=== PATIENT | male | born 1945 | race Caucasian/White ===

== ENCOUNTER 2016-05-04 11:56 | Inpatient (IN) | payer OTHER ==
[2016-05-04] MEDS ORDERED: NITROGLYCERIN 0.4 MG TAB.SUBL SL PRN ×2 (12:24→14:08)
[2016-05-04] MEDS ORDERED: ENOXAPARIN SODIUM 30 MG/0.3 ML DISP.SYRIN SQ SCH (13:00)
[2016-05-04] MEDS ORDERED: HYDROcodone /APAP 5/325 1 EACH TABLET PO PRN (14:08)
--- NOTE | 2016-05-04 14:20 | History and Physical Report ---
History of Present Illnes - History of Present Illness Reason for Visit: rehab post knee surgery History of Present Illness: 70yo white male who underwent a total right knee replacement 3 days ago and was transferred to this institution for further rehab services. He has been walking some. Pain seems to be manageable at this time. No intreroperative or post operative complications. Patient has had some problems with osteoarthritis for some time. Has been having more difficulties with pain and elected to have a total knee replacement. - Past Medical History Cardiac: CAD, HTN, Hyperlipidemia Musculoskeletal: Osteoarthritis Renal/: Benign prostatic enlarg. - Past Surgical History Past Surgical History: Other (back surgery times 4, Cardiac cath with stinting of one vessel) - Past Social History Smoke: No Occupation: [employer] Alcohol: None Drugs: None Lives: Alone Domestic Violence: Negative - Health Maintenance Health Maintenance: Cholesterol Pneumonia Vaccine: Yes Resuscitation Status: Resusciation Status Resuscitation Status Full Code - Unable to Obtain History Unable to Obtain: Yes Review of Systems - Review of Systems Constitutional: negative: Fever, Chills, Weakness Eyes: negative: pain, vision change ENT: negative: Ear Pain, Ear Discharge, Nose Pain, Nose Discharge, Nose Congestion, Mouth Pain, Mouth Swelling, Throat Pain, Throat Swelling Respiratory: negative: Cough, Dry, Shortness of Breath, Hemoptysis, SOB with Excertion, Pleuritic Pain, Sputum, Wheezing Cardiovascular: negative: Chest Pain, Palpitations, Orthopnea, Paroxysmal Noc. Dyspnea, Edema Gastrointestinal: negative: Nausea, Vomiting, Abdominal Pain, Diarrhea, Constipation, Melena, Hematochezia Genitourinary: negative: Dysuria, Frequency, Incontinence, Hematuria Musculoskeletal: Back Pain, Leg Pain (right knee) Skin: negative: Rash, Lesions Neurological: Other (mental challenged). negative: Weakness, Numbness, Incoordination, Change in Speech - Medications/Allergies Allergies/Adverse Reactions: Allergies Allergy/AdvReac Type Severity Reaction Status Date / Time morphine Allergy Verified 05/04/16 12:42 Home Medications: Home Medications Aspirin [Katarina] 325 mg PO BID 05/04/16 Atorvastatin Calcium 40 mg PO HS 05/04/16 Calcium Carbonate [Calcium] 600 mg PO D 05/04/16 Famotidine [Pepcid] 20 mg PO 717 05/04/16 Finasteride [Proscar] 5 mg PO DAILY 05/04/16 Hydrochlorothiazide [Hydrodiuril] 12.5 mg PO D 05/04/16 Hydrocodone/Acetaminophen [Hydrocodon-Acetaminophen 5-325] 1 each PO Q4 PRN Metoprolol Succinate [Toprol XL] 50 mg PO DAILY 05/04/16 Multivits-Min/Iron/FA/Lutein [Centrum Silver Women Tablet] 1 each PO D 05/04/16 Nitroglycerin [Nitroquick] 0.4 mg SL Q5M PRN 05/04/16 [place]-3S/Dha/Epa/Fish Oil [Fish Oil 1,200 mg Softgel] 1 each PO D 05/04/16 Oxybutynin Chloride [Ditropan Xl] 10 mg PO D 05/04/16 Sennosides/Docusate Sodium [Senna Plus Tablet] 1 each PO DAILY 05/04/16 Tamsulosin HCl [Flomax] 0.4 mg PO [id number] 05/04/16 Tramadol HCl [Ultram] 50 mg PO Q6 PRN 05/04/16 Zinc Plus (Vitamin C-Vitamin [id number]) 1 tab PO D 05/04/16 amLODIPine BESYLATE [Norvasc] 5 mg PO 0900 05/04/16 Current Inpatient Medications: Current Inpatient Medications Amlodipine Besylate (Norvasc) 5 mg PO DAILY [facility] Aspirin (Aspirin) 325 mg PO BID [facility] Atorvastatin Calcium (Lipitor) 40 mg PO HS [facility] Calcium/Vitamin D (Caltrate With Vit D-3) 1 each PO D [facility] Enoxaparin Sodium (Lovenox) 30 mg SQ QD [facility] Stop: 05/17/16 13:01 Famotidine (Pepcid) 20 mg PO 717 [facility] Finasteride (Proscar) 5 mg PO DAILY [facility] Hydrochlorothiazide (Hydrodiuril) 12.5 mg PO DAILY [facility] Metoprolol Succinate (Toprol Xl) 50 mg PO DAILY [facility] Nitroglycerin (Nitroquick) 0.4 mg SL Q5M PRN PRN Reason: Chest Pain Oxybutynin Chloride (Ditropan) 5 mg PO BID [facility] Senna/Docusate Sodium (Senna Plus Tablet) 1 each PO DAILY [facility] Tamsulosin HCl (Flomax) 0.4 mg PO [id number] [facility] Exam - Exam General: Alert, Oriented to Person, Oriented to Place, Oriented to Time, Cooperative, No acute distress HEENT: Atraumatic, PERRLA, EOMI, Mouth Mucous membr. moist/[place], Nose Mucous membr. moist/[place] Neck: Normal Range of Motion Lungs: Clear to auscultation, Normal air movement, Speaks full Sentences. No: Wheezes, Rales, Rhonchi, Stridor Cardiovascular: Regular rate, Normal S1, Normal S2, No murmurs. No: Gallops Abdomen: Normal bowel sounds, Soft, No tenderness, No hepatospenomegaly, No masses, Other (obese). No: Distended Integumentary: Normal, [place], Warm, Dry Extremities: No clubbing, No cyanosis, No edema, Normal pulses, No tenderness/ swelling, Other (dry dressing over the right knee, swelling to the right knee joint area) Neurological: Normal gait, Normal speech, Strength Equal Bilat, Normal tone, Sensation intact, Cranial nerves 3-12 NL, Reflexes 2+ Psych/Mental Status: Mental status NL, Mood NL, Appropriate Affect. No: Intact Judgment Assessment/Plan - Assessment/Plan (1) Gait disturbance Status: Acute (2) Essential hypertension Status: Acute (3) Hyperlipemia Status: Chronic (4) BPH (benign prostatic hyperplasia) Status: Chronic (5) History of hyperglycemia Status: Chronic VTE Assessment - RISK FACTOR SCORE VTE RISK FACTOR SCORES: AGE OVER 60 YEARS, LEG SWELLING, ULCERS, VARICOSE VEINS , ELECTIVE KNEE OR HIP ARTHROPLASTY - RISK VTE HIGH RISK: SCORE OF 3-4 (RISK PROXIMAL DVT 4-8%) PROPHYLAXIS NEEDED
[2016-05-04] MEDS ORDERED: ENOXAPARIN SODIUM 30 MG/0.3 ML DISP.SYRIN SQ ONE (14:43)
[2016-05-04] MEDS ORDERED: HYDROcodone /APAP 5/325 1 EACH TABLET ONE (14:44)
[2016-05-04] MEDS: HYDROcodone /APAP 5/325 1 EACH TABLET PO SCH ×2 (16:51→21:24)
[2016-05-04] MEDS: FAMOTIDINE 20 MG TABLET PO SCH (16:51)
[2016-05-04 17:33] VITALS: BMI 36.6
[2016-05-04] MEDS: traMADol HCL 50 MG TABLET PO PRN (19:42)
[2016-05-04] MEDS ORDERED: FINASTERIDE 5 MG TABLET PO SCH (21:00)
[2016-05-04] MEDS: OXYBUTYNIN CHLORIDE 5 MG TABLET PO SCH (21:24)
[2016-05-04] MEDS: ASPIRIN 325 MG TABLET PO SCH (21:24)
[2016-05-04] MEDS: ATORVASTATIN CALCIUM 80 MG TABLET PO SCH (21:26)
[2016-05-05] MEDS: HYDROcodone /APAP 5/325 1 EACH TABLET PO SCH ×6 (00:55→21:55)
[2016-05-05] MEDS: FAMOTIDINE 20 MG TABLET PO SCH ×2 (06:24→17:00)
[2016-05-05] MEDS: SENNOSIDES/DOCUSATE SODIUM 1 EACH TABLET PO SCH (08:29)
[2016-05-05] MEDS: HYDROCHLOROTHIAZIDE 25 MG TABLET PO SCH (08:29)
[2016-05-05] MEDS: ASPIRIN 325 MG TABLET PO SCH ×2 (08:29→21:55)
[2016-05-05] MEDS: FINASTERIDE 5 MG TABLET PO SCH (08:29)
[2016-05-05] MEDS: CALCIUM CARB 600MG/VIT D-3 400 1 EACH TABLET PO SCH (08:29)
[2016-05-05] MEDS: OXYBUTYNIN CHLORIDE 5 MG TABLET PO SCH ×2 (08:29→21:55)
[2016-05-05] MEDS: METOPROLOL SUCCINATE 50 MG TAB.ER.24H PO SCH (08:29)
[2016-05-05] MEDS: amLODIPine BESYLATE 5 MG TABLET PO SCH (08:32)
[2016-05-05] MEDS ORDERED: METOPROLOL SUCCINATE 50 MG TAB.ER.24H PO SCH (09:00)
[2016-05-05] MEDS ORDERED: HYDROCHLOROTHIAZIDE 12.5 MG PO SCH (09:00)
[2016-05-05] MEDS: ATORVASTATIN CALCIUM 80 MG TABLET PO SCH (21:55)
[2016-05-06] MEDS: HYDROcodone /APAP 5/325 1 EACH TABLET PO SCH ×6 (01:02→21:19)
[2016-05-06] MEDS ORDERED: ASPIRIN 81 MG CHEW TAB ONE (04:39)
[2016-05-06] MEDS: FAMOTIDINE 20 MG TABLET PO SCH ×2 (06:21→16:45)
[2016-05-06 07:28] LABS: BASOPHILS % 0.4 (0.0-1.5); EOSINOPHILS % 1.7 % (0.0-6.8); LYMPHOCYTES # 5.9 # k/uL (0.6-4.0); MEAN CORPUSCULAR HEMOGLOBIN 28.7 pg (28.0-34.0); MONOCYTES # 0.6 # k/uL (0.0-0.9); MONOCYTES % 4.9 % (0.0-11.0); NEUTROPHILS # 5.1 # k/uL (1.4-7.7)
[2016-05-06 07:39] LABS: eGFR (African) > 60; eGFR (Non-African) > 60
[2016-05-06] MEDS: CALCIUM CARB 600MG/VIT D-3 400 1 EACH TABLET PO SCH (08:51)
[2016-05-06] MEDS: FINASTERIDE 5 MG TABLET PO SCH (08:51)
[2016-05-06] MEDS: OXYBUTYNIN CHLORIDE 5 MG TABLET PO SCH ×2 (08:51→21:18)
[2016-05-06] MEDS: SENNOSIDES/DOCUSATE SODIUM 1 EACH TABLET PO SCH (08:51)
[2016-05-06] MEDS: HYDROCHLOROTHIAZIDE 25 MG TABLET PO SCH (08:52)
[2016-05-06] MEDS: METOPROLOL SUCCINATE 50 MG TAB.ER.24H PO SCH (08:52)
[2016-05-06] MEDS: TAMSULOSIN HCL 0.4 MG CAP.ER.24H PO SCH ×2 (08:53→18:40)
[2016-05-06] MEDS: amLODIPine BESYLATE 5 MG TABLET PO SCH (09:06)
[2016-05-06] MEDS: ASPIRIN 325 MG TABLET PO SCH ×2 (09:06→21:18)
[2016-05-06] MEDS: traMADol HCL 50 MG TABLET PO PRN ×2 (14:34→22:47)
[2016-05-06] MEDS: ATORVASTATIN CALCIUM 80 MG TABLET PO SCH (21:18)
[2016-05-07] MEDS: HYDROcodone /APAP 5/325 1 EACH TABLET PO SCH ×2 (01:20→06:37)
[2016-05-07] MEDS: FAMOTIDINE 20 MG TABLET PO SCH ×2 (06:37→17:02)
[2016-05-07] MEDS: HYDROcodone /APAP 5/325 1 EACH TABLET PEG SCH ×4 (06:38→23:04)
[2016-05-07] MEDS: OXYBUTYNIN CHLORIDE 5 MG TABLET PO SCH ×2 (10:28→20:41)
[2016-05-07] MEDS: ASPIRIN 325 MG TABLET PO SCH ×2 (10:28→20:41)
[2016-05-07] MEDS: CALCIUM CARB 600MG/VIT D-3 400 1 EACH TABLET PO SCH (10:28)
[2016-05-07] MEDS: HYDROCHLOROTHIAZIDE 25 MG TABLET PO SCH (10:28)
[2016-05-07] MEDS: SENNOSIDES/DOCUSATE SODIUM 1 EACH TABLET PO SCH (10:29)
[2016-05-07] MEDS: FINASTERIDE 5 MG TABLET PO SCH (10:29)
[2016-05-07] MEDS: amLODIPine BESYLATE 5 MG TABLET PO SCH (10:29)
[2016-05-07] MEDS: METOPROLOL SUCCINATE 50 MG TAB.ER.24H PO SCH (10:30)
[2016-05-07] MEDS: TAMSULOSIN HCL 0.4 MG CAP.ER.24H PO SCH (17:02)
[2016-05-07] MEDS: ATORVASTATIN CALCIUM 80 MG TABLET PO SCH (20:41)
[2016-05-07] MEDS: traMADol HCL 50 MG TABLET PO PRN (20:41)
[2016-05-08] MEDS: traMADol HCL 50 MG TABLET PO PRN ×2 (01:09→21:30)
[2016-05-08] MEDS: FAMOTIDINE 20 MG TABLET PO SCH ×2 (05:58→17:50)
[2016-05-08] MEDS: HYDROcodone /APAP 5/325 1 EACH TABLET PEG SCH ×3 (05:58→17:50)
[2016-05-08] MEDS: HYDROCHLOROTHIAZIDE 25 MG TABLET PO SCH (09:06)
[2016-05-08] MEDS: CALCIUM CARB 600MG/VIT D-3 400 1 EACH TABLET PO SCH (09:06)
[2016-05-08] MEDS: ASPIRIN 325 MG TABLET PO SCH ×2 (09:06→21:30)
[2016-05-08] MEDS: OXYBUTYNIN CHLORIDE 5 MG TABLET PO SCH ×2 (09:06→21:30)
[2016-05-08] MEDS: amLODIPine BESYLATE 5 MG TABLET PO SCH (09:07)
[2016-05-08] MEDS: SENNOSIDES/DOCUSATE SODIUM 1 EACH TABLET PO SCH (09:08)
[2016-05-08] MEDS: FINASTERIDE 5 MG TABLET PO SCH (09:08)
[2016-05-08] MEDS: METOPROLOL SUCCINATE 50 MG TAB.ER.24H PO SCH (09:08)
[2016-05-08] MEDS: TAMSULOSIN HCL 0.4 MG CAP.ER.24H PO SCH (17:50)
[2016-05-08] MEDS: ATORVASTATIN CALCIUM 80 MG TABLET PO SCH (21:30)
[2016-05-09] MEDS: HYDROcodone /APAP 5/325 1 EACH TABLET PEG SCH ×4 (00:01→18:24)
[2016-05-09] MEDS: FAMOTIDINE 20 MG TABLET PO SCH ×2 (05:26→18:25)
[2016-05-09] MEDS: amLODIPine BESYLATE 5 MG TABLET PO SCH (10:11)
[2016-05-09] MEDS: ASPIRIN 325 MG TABLET PO SCH ×2 (10:12→21:08)
[2016-05-09] MEDS: CALCIUM CARB 600MG/VIT D-3 400 1 EACH TABLET PO SCH (10:13)
[2016-05-09] MEDS: METOPROLOL SUCCINATE 50 MG TAB.ER.24H PO SCH (10:14)
[2016-05-09] MEDS: FINASTERIDE 5 MG TABLET PO SCH (10:14)
[2016-05-09] MEDS: SENNOSIDES/DOCUSATE SODIUM 1 EACH TABLET PO SCH (10:14)
[2016-05-09] MEDS: HYDROCHLOROTHIAZIDE 25 MG TABLET PO SCH (10:15)
[2016-05-09] MEDS: OXYBUTYNIN CHLORIDE 5 MG TABLET PO SCH ×2 (10:15→21:10)
[2016-05-09] MEDS: TAMSULOSIN HCL 0.4 MG CAP.ER.24H PO SCH (18:24)
[2016-05-09] MEDS: ATORVASTATIN CALCIUM 80 MG TABLET PO SCH (21:08)
[2016-05-10] MEDS: HYDROcodone /APAP 5/325 1 EACH TABLET PEG SCH ×4 (00:18→18:07)
[2016-05-10] MEDS: traMADol HCL 50 MG TABLET PO PRN ×2 (04:36→14:35)
[2016-05-10] MEDS: FAMOTIDINE 20 MG TABLET PO SCH ×2 (06:23→18:08)
[2016-05-10] MEDS: OXYBUTYNIN CHLORIDE 5 MG TABLET PO SCH ×2 (08:34→21:08)
[2016-05-10] MEDS: CALCIUM CARB 600MG/VIT D-3 400 1 EACH TABLET PO SCH (08:35)
[2016-05-10] MEDS: amLODIPine BESYLATE 5 MG TABLET PO SCH (08:35)
[2016-05-10] MEDS: HYDROCHLOROTHIAZIDE 25 MG TABLET PO SCH (08:35)
[2016-05-10] MEDS: METOPROLOL SUCCINATE 50 MG TAB.ER.24H PO SCH (08:35)
[2016-05-10] MEDS: ASPIRIN 325 MG TABLET PO SCH ×2 (08:35→21:08)
[2016-05-10] MEDS: SENNOSIDES/DOCUSATE SODIUM 1 EACH TABLET PO SCH (08:35)
[2016-05-10] MEDS: FINASTERIDE 5 MG TABLET PO SCH (08:35)
[2016-05-10] MEDS: TAMSULOSIN HCL 0.4 MG CAP.ER.24H PO SCH (18:08)
[2016-05-10] MEDS: ATORVASTATIN CALCIUM 80 MG TABLET PO SCH (21:09)
[2016-05-10] MEDS: HYDROcodone /APAP 5/325 1 EACH TABLET PO SCH ×2 (23:47→23:49)
[2016-05-11] MEDS: HYDROcodone /APAP 5/325 1 EACH TABLET PO SCH ×3 (05:24→18:00)
[2016-05-11] MEDS: FAMOTIDINE 20 MG TABLET PO SCH ×2 (05:25→18:00)
[2016-05-11] MEDS: CALCIUM CARB 600MG/VIT D-3 400 1 EACH TABLET PO SCH (09:14)
[2016-05-11] MEDS: OXYBUTYNIN CHLORIDE 5 MG TABLET PO SCH ×2 (09:14→22:08)
[2016-05-11] MEDS: ASPIRIN 325 MG TABLET PO SCH ×2 (09:14→22:04)
[2016-05-11] MEDS: SENNOSIDES/DOCUSATE SODIUM 1 EACH TABLET PO SCH (09:15)
[2016-05-11] MEDS: HYDROCHLOROTHIAZIDE 25 MG TABLET PO SCH (09:15)
[2016-05-11] MEDS: FINASTERIDE 5 MG TABLET PO SCH (09:15)
[2016-05-11] MEDS: amLODIPine BESYLATE 5 MG TABLET PO SCH (09:15)
[2016-05-11] MEDS: METOPROLOL SUCCINATE 50 MG TAB.ER.24H PO SCH (09:16)
[2016-05-11] MEDS: traMADol HCL 50 MG TABLET PO PRN (09:50)
[2016-05-11] MEDS: TAMSULOSIN HCL 0.4 MG CAP.ER.24H PO SCH (18:02)
[2016-05-11] MEDS: ATORVASTATIN CALCIUM 80 MG TABLET PO SCH (22:08)
[2016-05-12] MEDS: HYDROcodone /APAP 5/325 1 EACH TABLET PO SCH ×4 (00:04→17:32)
[2016-05-12] MEDS: FAMOTIDINE 20 MG TABLET PO SCH ×2 (05:46→17:31)
[2016-05-12] MEDS: OXYBUTYNIN CHLORIDE 5 MG TABLET PO SCH ×2 (09:41→21:31)
[2016-05-12] MEDS: CALCIUM CARB 600MG/VIT D-3 400 1 EACH TABLET PO SCH (09:41)
[2016-05-12] MEDS: ASPIRIN 325 MG TABLET PO SCH ×2 (09:41→21:30)
[2016-05-12] MEDS: HYDROCHLOROTHIAZIDE 25 MG TABLET PO SCH (09:42)
[2016-05-12] MEDS: METOPROLOL SUCCINATE 50 MG TAB.ER.24H PO SCH (09:43)
[2016-05-12] MEDS: SENNOSIDES/DOCUSATE SODIUM 1 EACH TABLET PO SCH (09:43)
[2016-05-12] MEDS: FINASTERIDE 5 MG TABLET PO SCH (09:43)
[2016-05-12] MEDS: amLODIPine BESYLATE 5 MG TABLET PO SCH (09:51)
[2016-05-12] MEDS: TAMSULOSIN HCL 0.4 MG CAP.ER.24H PO SCH (17:31)
[2016-05-12] MEDS: traMADol HCL 50 MG TABLET PO PRN (18:41)
[2016-05-12] MEDS: ATORVASTATIN CALCIUM 80 MG TABLET PO SCH (21:31)
[2016-05-13] MEDS: HYDROcodone /APAP 5/325 1 EACH TABLET PO SCH ×6 (05:52→23:50)
[2016-05-13] MEDS: FAMOTIDINE 20 MG TABLET PO SCH ×2 (05:53→18:21)
[2016-05-13] MEDS: FINASTERIDE 5 MG TABLET PO SCH (08:15)
[2016-05-13] MEDS: ASPIRIN 325 MG TABLET PO SCH ×2 (08:15→21:36)
[2016-05-13] MEDS: SENNOSIDES/DOCUSATE SODIUM 1 EACH TABLET PO SCH (08:15)
[2016-05-13] MEDS: OXYBUTYNIN CHLORIDE 5 MG TABLET PO SCH ×2 (08:15→21:36)
[2016-05-13] MEDS: METOPROLOL SUCCINATE 50 MG TAB.ER.24H PO SCH (08:15)
[2016-05-13] MEDS: amLODIPine BESYLATE 5 MG TABLET PO SCH (08:15)
[2016-05-13] MEDS: HYDROCHLOROTHIAZIDE 25 MG TABLET PO SCH (08:15)
[2016-05-13] MEDS: CALCIUM CARB 600MG/VIT D-3 400 1 EACH TABLET PO SCH (08:16)
[2016-05-13] MEDS: traMADol HCL 50 MG TABLET PO PRN (15:19)
[2016-05-13] MEDS: TAMSULOSIN HCL 0.4 MG CAP.ER.24H PO SCH (18:21)
[2016-05-13] MEDS: ATORVASTATIN CALCIUM 80 MG TABLET PO SCH (21:36)
[2016-05-14] MEDS: HYDROcodone /APAP 5/325 1 EACH TABLET PO SCH ×4 (06:41→22:30)
[2016-05-14] MEDS: FAMOTIDINE 20 MG TABLET PO SCH ×2 (06:41→17:52)
[2016-05-14] MEDS: SENNOSIDES/DOCUSATE SODIUM 1 EACH TABLET PO SCH (08:31)
[2016-05-14] MEDS: HYDROCHLOROTHIAZIDE 25 MG TABLET PO SCH (08:31)
[2016-05-14] MEDS: CALCIUM CARB 600MG/VIT D-3 400 1 EACH TABLET PO SCH (08:32)
[2016-05-14] MEDS: OXYBUTYNIN CHLORIDE 5 MG TABLET PO SCH ×2 (08:32→21:07)
[2016-05-14] MEDS: ASPIRIN 325 MG TABLET PO SCH ×2 (08:32→21:07)
[2016-05-14] MEDS: METOPROLOL SUCCINATE 50 MG TAB.ER.24H PO SCH (08:32)
[2016-05-14] MEDS: amLODIPine BESYLATE 5 MG TABLET PO SCH (08:32)
[2016-05-14] MEDS: FINASTERIDE 5 MG TABLET PO SCH (08:32)
[2016-05-14] MEDS: TAMSULOSIN HCL 0.4 MG CAP.ER.24H PO SCH (17:53)
[2016-05-14] MEDS: traMADol HCL 50 MG TABLET PO PRN (21:07)
[2016-05-14] MEDS: ATORVASTATIN CALCIUM 80 MG TABLET PO SCH (21:07)
[2016-05-15] MEDS: traMADol HCL 50 MG TABLET PO PRN (01:06)
[2016-05-15] MEDS: FAMOTIDINE 20 MG TABLET PO SCH ×2 (05:23→17:40)
[2016-05-15] MEDS: HYDROcodone /APAP 5/325 1 EACH TABLET PO SCH ×3 (05:23→18:32)
[2016-05-15] MEDS: FINASTERIDE 5 MG TABLET PO SCH (08:53)
[2016-05-15] MEDS: ASPIRIN 325 MG TABLET PO SCH ×2 (08:53→19:33)
[2016-05-15] MEDS: amLODIPine BESYLATE 5 MG TABLET PO SCH (08:54)
[2016-05-15] MEDS: METOPROLOL SUCCINATE 50 MG TAB.ER.24H PO SCH (08:54)
[2016-05-15] MEDS: CALCIUM CARB 600MG/VIT D-3 400 1 EACH TABLET PO SCH (08:54)
[2016-05-15] MEDS: OXYBUTYNIN CHLORIDE 5 MG TABLET PO SCH ×2 (08:54→19:33)
[2016-05-15] MEDS: SENNOSIDES/DOCUSATE SODIUM 1 EACH TABLET PO SCH (08:54)
[2016-05-15] MEDS: HYDROCHLOROTHIAZIDE 25 MG TABLET PO SCH (08:54)
[2016-05-15] MEDS: TAMSULOSIN HCL 0.4 MG CAP.ER.24H PO SCH (17:40)
[2016-05-15] MEDS: ATORVASTATIN CALCIUM 80 MG TABLET PO SCH (19:33)
[2016-05-16] MEDS: HYDROcodone /APAP 5/325 1 EACH TABLET PO SCH ×5 (00:01→23:58)
[2016-05-16] MEDS: FAMOTIDINE 20 MG TABLET PO SCH ×2 (06:00→17:48)
[2016-05-16] MEDS: ASPIRIN 325 MG TABLET PO SCH ×2 (08:00→21:19)
[2016-05-16] MEDS: SENNOSIDES/DOCUSATE SODIUM 1 EACH TABLET PO SCH (08:01)
[2016-05-16] MEDS: amLODIPine BESYLATE 5 MG TABLET PO SCH (08:01)
[2016-05-16] MEDS: HYDROCHLOROTHIAZIDE 25 MG TABLET PO SCH ×2 (08:01→17:40)
[2016-05-16] MEDS: CALCIUM CARB 600MG/VIT D-3 400 1 EACH TABLET PO SCH (08:01)
[2016-05-16] MEDS: METOPROLOL SUCCINATE 50 MG TAB.ER.24H PO SCH (08:01)
[2016-05-16] MEDS: OXYBUTYNIN CHLORIDE 5 MG TABLET PO SCH ×2 (08:01→21:19)
[2016-05-16] MEDS: FINASTERIDE 5 MG TABLET PO SCH (08:02)
[2016-05-16] MEDS: TAMSULOSIN HCL 0.4 MG CAP.ER.24H PO SCH (19:26)
[2016-05-16] MEDS: ATORVASTATIN CALCIUM 80 MG TABLET PO SCH (21:19)
[2016-05-17] MEDS: HYDROcodone /APAP 5/325 1 EACH TABLET PO SCH ×2 (05:56→12:30)
[2016-05-17] MEDS: CALCIUM CARB 600MG/VIT D-3 400 1 EACH TABLET PO SCH (08:58)
[2016-05-17] MEDS: FINASTERIDE 5 MG TABLET PO SCH (08:58)
[2016-05-17] MEDS: ASPIRIN 325 MG TABLET PO SCH (08:58)
[2016-05-17] MEDS: amLODIPine BESYLATE 5 MG TABLET PO SCH (08:59)
[2016-05-17] MEDS: HYDROCHLOROTHIAZIDE 25 MG TABLET PO SCH (09:01)
[2016-05-17] MEDS: METOPROLOL SUCCINATE 50 MG TAB.ER.24H PO SCH (09:03)
[2016-05-17] MEDS: SENNOSIDES/DOCUSATE SODIUM 1 EACH TABLET PO SCH (09:03)
[2016-05-17] MEDS: OXYBUTYNIN CHLORIDE 5 MG TABLET PO SCH (09:04)
[2016-05-17 13:25] VITALS: BP 150/73
--- NOTE | 2016-05-19 21:10 | Discharge Summary ---
Discharge Summary - Discharge Sumary History of Present Illness: 70yo white male who underwent a total right knee replacement 3 days ago and was transferred to this institution for further rehab services. He has been walking some. Pain seems to be manageable at this time. No intreroperative or post operative complications. Patient has had some problems with osteoarthritis for some time. Has been having more difficulties with pain and elected to have a total knee replacement. Home Medications: Ambulatory Orders Medication Instructions Recorded Aspirin [Katarina] 325 mg PO BID 05/04/16 Atorvastatin Calcium 40 mg PO HS 05/04/16 Calcium Carbonate [Calcium] 600 mg PO D 05/04/16 Famotidine [Pepcid] 20 mg PO 717 05/04/16 Finasteride [Proscar] 5 mg PO DAILY 05/04/16 Hydrochlorothiazide [Hydrodiuril] 12.5 mg PO D 05/04/16 Hydrocodone/Acetaminophen 1 each PO Q4 PRN 05/04/16 [Hydrocodon-Acetaminophen 5-325] Metoprolol Succinate [Toprol XL] 50 mg PO DAILY 05/04/16 Multivits-Min/Iron/FA/Lutein 1 each PO D 05/04/16 [Centrum Silver Women Tablet] Nitroglycerin [Nitroquick] 0.4 mg SL Q5M PRN 05/04/16 [place]-3S/Dha/Epa/Fish Oil [Fish 1 each PO D 05/04/16 Oil 1,200 mg Softgel] Oxybutynin Chloride [Ditropan Xl] 10 mg PO D 05/04/16 Sennosides/Docusate Sodium [Senna 1 each PO DAILY 05/04/16 Plus Tablet] Tamsulosin HCl [Flomax] 0.4 mg PO [id number] 05/04/16 Tramadol HCl [Ultram] 50 mg PO Q6 PRN 05/04/16 Zinc Plus (Vitamin C-Vitamin 1 tab PO D 05/04/16 [id number]) amLODIPine BESYLATE [Norvasc] 5 mg PO 0900 05/04/16 Allergies/Adverse Reactions: Allergies Allergy/AdvReac Type Severity Reaction Status Date / Time morphine Allergy Verified 05/04/16 12:42 Discharge Summary: patient was highly motivated and did participate with physical and occupational therapy well. Patient did a lot. Ambulating with a walker in the hallway. Patient had his pain well controlled. Patient did not complain of very much pain associated with her surgery. Patient's incisional site remained clean and dry. Patient's hypertension was stable on home medications. Patient did not have any problems with benign prostatic hypertrophy. Patient was subsequently discharged home in stable condition. - Final Diagnosis (1) Gait disturbance Problems: improve (2) Essential hypertension Problems: stable on home meds (3) Hyperlipemia Problems: stable (4) BPH (benign prostatic hyperplasia) Problems: stable
--- NOTE | 2016-05-19 21:12 | Inpatient Progress Note ---
Subjective - Required Recertification Statement I anticipate X number of days because-include discharge plan: 7 - Review of Systems Subjective: patient has been doing well. Patient is participating well with physical and occupational therapy. Patient is highly motivated to improve his appetite was status. Patient has been up walking in [place] with a walker. Patient denies any other problems at this time. Pain seems to be well managed. Patient does not have any constipation issues. Objective - Exam Vitals and I&O: Vital Signs Temp 97.5 F L 05/17/16 09:00 Pulse 64 05/17/16 09:00 Resp 16 05/17/16 09:00 BP 150/73 05/17/16 09:00 Pulse Ox 96 05/16/16 09:00 General: Alert, Oriented to Person, Oriented to Place, Oriented to Time, Cooperative Lungs: Clear to auscultation, Normal air movement, Speaks full Sentences Cardiovascular: Regular rate, Normal S1, Normal S2 Abdomen: Normal bowel sounds, Soft, No tenderness, No hepatospenomegaly Skin: [place], Dry, Other (incision site clean and dry) Psych/Mental Status: Mental status NL (at baseline), Mood NL - Results Results: Laboratory Results WBC 12.10 K/ul (4.00-12.00) H 05/06/16 06:55 RBC 3.23 M/ul (3.90-5.20) L 05/06/16 06:55 Hgb 9.3 g/dL (12.0-18.0) L 05/06/16 06:55 Hct 28.5 % (37.0-53.0) L 05/06/16 06:55 MCV 88.1 fl (80.0-100.0) 05/06/16 06:55 MCH 28.7 pg (28.0-34.0) 05/06/16 06:55 MCHC 32.6 g/dL (30.0-36.0) 05/06/16 06:55 RDW 14.5 % (11.3-14.3) H 05/06/16 06:55 Plt Count 165 K/mm3 (130-400) 05/06/16 06:55 Neut % (Auto) 42.0 % (39.0-79.0) 05/06/16 06:55 Lymph % (Auto) 49.1 % (16.0-50.0) 05/06/16 06:55 [place] % (Auto) 4.9 % (0.0-11.0) 05/06/16 06:55 Eos % (Auto) 1.7 % (0.0-6.8) 05/06/16 06:55 Baso % (Auto) 0.4 (0.0-1.5) 05/06/16 06:55 Neut # 5.1 # k/uL (1.4-7.7) 05/06/16 06:55 Lymph # 5.9 # k/uL (0.6-4.0) H 05/06/16 06:55 [place] # 0.6 # k/uL (0.0-0.9) 05/06/16 06:55 Eos # 0.2 # k/uL (0.0-0.6) 05/06/16 06:55 Baso # 0.0 # k/uL (0.0-0.5) 05/06/16 06:55 Reactive Lymphs % 1.8 % (0.0-5.0) 05/06/16 06:55 Reactive Lymphs # 0.2 # k/uL (0.0-0.8) 05/06/16 06:55 Sodium 138 mmol/L (136-145) 05/06/16 06:55 Potassium 4.0 mmol/L (3.5-5.0) 05/06/16 06:55 Chloride 108 mmol/L (98-110) 05/06/16 06:55 Carbon Dioxide 28 mmol/L (20-32) 05/06/16 06:55 BUN 11 mg/dL (10-26) 05/06/16 06:55 Creatinine 0.6 mg/dL (0.4-1.5) 05/06/16 06:55 Estimated Creat Clear 190 05/06/16 06:55 Est GFR ( Amer) > 60 (60-) 05/06/16 06:55 Est GFR (Non-Af Amer) > 60 (60-) 05/06/16 06:55 Glucose 101 mg/dL (70-99) H 05/06/16 06:55 Calcium 8.5 mg/dL (8.5-10.5) 05/06/16 06:55 Total Bilirubin 0.6 mg/dL (0.2-1.2) 05/06/16 06:55 AST 17 U/L (0-41) 05/06/16 06:55 ALT 10 U/L (0-45) 05/06/16 06:55 Alkaline Phosphatase 38 U/L (46-116) L 05/06/16 06:55 Total Protein 5.5 g/dL (6.0-8.5) L 05/06/16 06:55 Albumin 3.3 g/dL (3.0-5.5) 05/06/16 06:55 Assessment/Plan - Assessment/Plan (1) Gait disturbance Status: Acute Assessment: improving (2) Essential hypertension Status: Acute Assessment: stable on home meds
== END 2016-05-17 12:15 | disposition home health service (06) | DRG 93 ==
LOC: SOUTH 11:56
PROVIDERS: ADMIT Family Medicine; ATTEND Family Medicine
DX: R26.89 Other abnormalities of gait and mobility (principal); I10 Essential (primary) hypertension; N40.0 Benign prostatic hyperplasia without lower urinary tract symptoms; E78.5 Hyperlipidemia, unspecified; R73.9 Hyperglycemia, unspecified; Z96.651 Presence of right artificial knee joint
CPT/HCPCS: 36415; 80053; 85025; J1650; A9270; A9270-GY

== ENCOUNTER 2016-09-10 13:46 | Outpatient (CLI) | payer OTHER | END 2016-09-10 13:47 | LOC: POD 13:46 | PROVIDERS: ATTEND Podiatrist | DX: B35.1 Tinea unguium (principal); M79.674 Pain in right toe(s); M79.675 Pain in left toe(s) | CPT/HCPCS: 11721; G0463 ==

== ENCOUNTER 2016-12-13 13:03 | Outpatient (CLI) | payer OTHER | END 2016-12-13 13:04 | LOC: POD 13:03 | PROVIDERS: ATTEND Podiatrist | DX: B35.1 Tinea unguium (principal); M79.674 Pain in right toe(s); M79.675 Pain in left toe(s) | CPT/HCPCS: 11721; G0463 ==

== ENCOUNTER 2017-02-14 12:45 | Outpatient (CLI) | payer OTHER | END 2017-02-14 12:46 | LOC: POD 12:45 | PROVIDERS: ATTEND Podiatrist | DX: B35.1 Tinea unguium (principal); M79.674 Pain in right toe(s); M79.675 Pain in left toe(s) | CPT/HCPCS: 11721; G0463 ==

== ENCOUNTER 2017-05-02 12:00 | Inpatient (IN) | payer OTHER ==
[2017-05-02 13:39] VITALS: BMI 82.4
[2017-05-02] MEDS ORDERED: NITROGLYCERIN 0.4 MG TAB.SUBL SL PRN (14:15)
--- NOTE | 2017-05-02 14:25 | History and Physical Report ---
History of Present Illnes - History of Present Illness Reason for Visit: gait disturbance following left TKR History of Present Illness: patient is a 71-year-old white male who last fall underwent a right total knee replacement. Approximately four days ago patient underwent a total left knee replacement. Patient did not have any preoperative, operative, or postoperative complications. Patient is not had a problem since the procedure. Patient states he has been passing gas. Patient stated that his pain is well controlled at this time. Patient was admitted to this institution for further rehab services. Patient other chronic medical problems and remain stable. Patient denies it is had any chest pain or chest pressure. SNF - Past Medical History Cardiac: CAD (s/p [place]), HTN, Hyperlipidemia Musculoskeletal: Osteoarthritis Renal/: Benign prostatic enlarg. 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, Cardiac cath with stinting of one vessel (last EF 59% 2007)) - Past Family History Mother Family History: CAD (CAD, CHF), DM, Hypertension, Father Family History: CAD, Sister 1 Family History: Hypertension Sister 2 Family History: Hypertension - Past Social History Smoke: No, Quit Occupation: [employer] Alcohol: None Drugs: None Lives: Alone Domestic Violence: Negative - Health Maintenance Health Maintenance: Cholesterol, Influenza Vaccine, Pneumococcal Vaccine Influenza Vaccine: Current for this Influenza Season Pneumonia Vaccine: Yes Resuscitation Status: Resusciation Status Resuscitation Status Full Code - Unable to Obtain History Unable to Obtain: No Review of Systems - Review of Systems Constitutional: Weakness. negative: Fever, Chills, Sweats Eyes: negative: pain ENT: negative: Ear Pain, Ear Discharge, Nose Pain, Nose Discharge, Nose Congestion, Mouth Pain, Throat Pain Respiratory: negative: Cough, Dry, Shortness of Breath, Wheezing Cardiovascular: negative: Chest Pain, Palpitations, Paroxysmal Noc. Dyspnea Gastrointestinal: negative: Nausea, Vomiting, Abdominal Pain, Diarrhea, Constipation, Melena, Hematochezia Genitourinary: negative: Dysuria, Frequency Musculoskeletal: Leg Pain. negative: Neck Pain Skin: negative: Rash, Lesions Neurological: Weakness - Medications/Allergies Allergies/Adverse Reactions: Allergies Allergy/AdvReac Type Severity Reaction Status Date / Time morphine Allergy Verified 05/04/16 12:42 Current Inpatient Medications: Current Inpatient Medications Amlodipine Besylate (Norvasc) 5 mg PO 0900 [facility] Aspirin (Aspirin) 325 mg PO BID [facility] Atorvastatin Calcium (Lipitor) 40 mg PO HS [facility] Calcium/Vitamin D (Caltrate With Vit D-3) 1 each PO DAILY [facility] Finasteride (Proscar) 5 mg PO DAILY [facility] Fish Oil () 1,000 mg PO D [facility] Hydrochlorothiazide (Hydrodiuril) 12.5 mg PO DAILY [facility] Metoprolol Succinate (Toprol Xl) 50 mg PO DAILY [facility] Multivitamins (Tab-A-Gricelda) 1 each PO DAILY [facility] Nitroglycerin (Nitroquick) 0.4 mg SL Q5M PRN PRN Reason: Chest Pain Senna/Docusate Sodium (Senna Plus Tablet) 1 each PO DAILY [facility] Tamsulosin HCl (Flomax) 0.4 mg PO [id number] [facility] Tolterodine Tartrate (Detrol La) 2 mg PO DAILY [facility] Tramadol HCl (Ultram) 50 mg PO Q6 PRN PRN Reason: PAIN Exam - Exam Vital Signs: Vital Signs (72 hours) 05/02/17 05/02/17 12:00 13:13 Temperature 98.2 F 98.2 F Respiratory 22 22 Rate Blood Pressure 147/74 147/74 [Left Arm] O2 Sat by Pulse 98 98 Oximetry General: Alert HEENT: Atraumatic, PERRLA, EOMI, Mouth Mucous membr. moist/[place], Nose Mucous membr. moist/[place] Neck: Normal Range of Motion Lungs: Clear to auscultation, Normal air movement, Speaks full Sentences Cardiovascular: Regular rate, Normal S1, Normal S2, No murmurs Abdomen: Normal bowel sounds, Soft, No tenderness, No hepatospenomegaly, No masses Integumentary: Normal, [place], Warm, Dry Extremities: No clubbing, No cyanosis, Normal pulses, No tenderness/swelling, Other (patient has some trade peel edema to the left lower extremity. tenderness could be appreciated. Incision site appeared to be clean and dry.) Neurological: Normal gait, Normal speech, Strength Equal Bilat, Normal tone, Sensation intact, Cranial nerves 3-12 NL, Reflexes 2+ Psych/Mental Status: Mental status NL, Mood NL, Appropriate Affect, Intact Judgment Assessment/Plan - Assessment/Plan (1) Gait disturbance Status: Acute Current Visit: No Assessment: patient will be started on physical and occupational therapy. The goal for the patient is to return home. (2) S/P TKR (total knee replacement) Status: Acute Current Visit: Yes Assessment: no postoperative complications noted at this time. Will continue to monitor patient incision site. Patient does have polar ice. Patient was instructed that it was important to participate with physical therapy in order to get his range of motion back. (3) Essential hypertension Status: Acute Current Visit: No Assessment: will continue home medications. (4) BPH (benign prostatic hyperplasia) Status: Chronic Current Visit: No Plan: will continue home medications. VTE Assessment - RISK FACTOR SCORE VTE RISK FACTOR SCORES: AGE OVER 60 YEARS, ELECTIVE KNEE OR HIP ARTHROPLASTY - RISK VTE MODERATE RISK: SCORE OF 2 (RISK PROXIMAL DVT 2-4%) PROPHYAXIS NEEDED
[2017-05-02] MEDS: ATORVASTATIN CALCIUM 80 MG TABLET PO SCH ×2 (14:28→19:27)
[2017-05-02] MEDS: HYDROcodone /APAP 5/325 1 EACH TABLET PO PRN ×2 (14:55→19:27)
[2017-05-02] MEDS: ENOXAPARIN SODIUM 30 MG/0.3 ML DISP.SYRIN SQ SCH (14:58)
[2017-05-02] MEDS: ASPIRIN 325 MG TABLET PO SCH (19:27)
[2017-05-03] MEDS ORDERED: CALCIUM/VIT D 500MG/200IU TABLET ONE ×2 (00:50→13:44)
[2017-05-03] MEDS: HYDROcodone /APAP 5/325 1 EACH TABLET PO PRN ×4 (06:13→23:34)
[2017-05-03] MEDS: ASPIRIN 325 MG TABLET PO SCH ×2 (08:44→19:36)
[2017-05-03] MEDS: METOPROLOL SUCCINATE 50 MG TAB.ER.24H PO SCH (08:44)
[2017-05-03] MEDS: CALCIUM CARB 600MG/VIT D-3 400 1 EACH TABLET PO SCH (08:44)
[2017-05-03] MEDS: MULTIVITAMIN 1 EACH TABLET PO SCH (08:45)
[2017-05-03] MEDS: FINASTERIDE 5 MG TABLET PO SCH (08:45)
[2017-05-03] MEDS: TOLTERODINE TARTRATE 2 MG CAP.ER.24H PO SCH (08:45)
[2017-05-03] MEDS: SENNOSIDES/DOCUSATE SODIUM 1 EACH TABLET PO SCH (08:45)
[2017-05-03] MEDS: amLODIPine BESYLATE 5 MG TABLET PO SCH (08:46)
[2017-05-03] MEDS: HYDROCHLOROTHIAZIDE 25 MG TABLET PO SCH (08:46)
[2017-05-03] MEDS: FISH OIL 1,000 MG CAP PO SCH (08:47)
[2017-05-03] MEDS: ENOXAPARIN SODIUM 30 MG/0.3 ML DISP.SYRIN SQ SCH (13:57)
[2017-05-03] MEDS: traMADol HCL 50 MG TABLET PO PRN ×2 (13:57→21:57)
[2017-05-03] MEDS: ATORVASTATIN CALCIUM 80 MG TABLET PO SCH (19:36)
[2017-05-04] MEDS: traMADol HCL 50 MG TABLET PO PRN ×2 (04:33→11:35)
[2017-05-04] MEDS: HYDROcodone /APAP 5/325 1 EACH TABLET PO PRN ×3 (08:05→20:24)
[2017-05-04] MEDS: ASPIRIN 325 MG TABLET PO SCH ×2 (08:06→20:12)
[2017-05-04] MEDS: HYDROCHLOROTHIAZIDE 25 MG TABLET PO SCH (08:07)
[2017-05-04] MEDS: CALCIUM CARB 600MG/VIT D-3 400 1 EACH TABLET PO SCH (08:07)
[2017-05-04] MEDS: TOLTERODINE TARTRATE 2 MG CAP.ER.24H PO SCH (08:07)
[2017-05-04] MEDS: FISH OIL 1,000 MG CAP PO SCH (08:07)
[2017-05-04] MEDS: amLODIPine BESYLATE 5 MG TABLET PO SCH (08:08)
[2017-05-04] MEDS: FINASTERIDE 5 MG TABLET PO SCH (08:08)
[2017-05-04] MEDS: SENNOSIDES/DOCUSATE SODIUM 1 EACH TABLET PO SCH (08:09)
[2017-05-04] MEDS: MULTIVITAMIN 1 EACH TABLET PO SCH (08:09)
[2017-05-04] MEDS: METOPROLOL SUCCINATE 50 MG TAB.ER.24H PO SCH (08:10)
[2017-05-04] MEDS: ENOXAPARIN SODIUM 30 MG/0.3 ML DISP.SYRIN SQ SCH (15:04)
[2017-05-04] MEDS: ATORVASTATIN CALCIUM 80 MG TABLET PO SCH (20:12)
[2017-05-05] MEDS: HYDROcodone /APAP 5/325 1 EACH TABLET PO PRN ×4 (05:16→22:52)
[2017-05-05 06:47] LABS: BASOPHILS % 0.6 (0.0-1.5); EOSINOPHILS % 1.7 % (0.0-6.8); MEAN CORPUSCULAR HEMOGLOBIN 27.2 pg (28.0-34.0); MEAN CORPUSCULAR VOLUME 88.1 fl (80.0-100.0); MONOCYTES % 3.6 % (0.0-11.0); NEUTROPHILS # 4.3 # k/uL (1.4-7.7)
[2017-05-05 07:27] LABS: eGFR (African) > 60; eGFR (Non-African) > 60
[2017-05-05] MEDS: FINASTERIDE 5 MG TABLET PO SCH (09:57)
[2017-05-05] MEDS: amLODIPine BESYLATE 5 MG TABLET PO SCH (09:58)
[2017-05-05] MEDS: HYDROCHLOROTHIAZIDE 25 MG TABLET PO SCH (09:58)
[2017-05-05] MEDS: METOPROLOL SUCCINATE 50 MG TAB.ER.24H PO SCH (09:58)
[2017-05-05] MEDS: TOLTERODINE TARTRATE 2 MG CAP.ER.24H PO SCH (09:58)
[2017-05-05] MEDS: ASPIRIN 325 MG TABLET PO SCH ×2 (09:58→20:54)
[2017-05-05] MEDS: FISH OIL 1,000 MG CAP PO SCH (09:58)
[2017-05-05] MEDS: MULTIVITAMIN 1 EACH TABLET PO SCH (09:58)
[2017-05-05] MEDS: SENNOSIDES/DOCUSATE SODIUM 1 EACH TABLET PO SCH (09:58)
[2017-05-05] MEDS: CALCIUM CARB 600MG/VIT D-3 400 1 EACH TABLET PO SCH (10:01)
[2017-05-05] MEDS: ENOXAPARIN SODIUM 30 MG/0.3 ML DISP.SYRIN SQ SCH (14:59)
[2017-05-05] MEDS: traMADol HCL 50 MG TABLET PO PRN (16:26)
[2017-05-05] MEDS: TAMSULOSIN HCL 0.4 MG CAP.ER.24H PO SCH ×2 (18:10→19:14)
[2017-05-05] MEDS: ATORVASTATIN CALCIUM 80 MG TABLET PO SCH (20:54)
[2017-05-06] MEDS: traMADol HCL 50 MG TABLET PO PRN ×2 (01:31→15:24)
[2017-05-06] MEDS: HYDROcodone /APAP 5/325 1 EACH TABLET PO PRN ×2 (06:24→14:17)
[2017-05-06] MEDS: MULTIVITAMIN 1 EACH TABLET PO SCH (09:20)
[2017-05-06] MEDS: FISH OIL 1,000 MG CAP PO SCH (09:20)
[2017-05-06] MEDS: ASPIRIN 325 MG TABLET PO SCH ×2 (09:20→20:41)
[2017-05-06] MEDS: amLODIPine BESYLATE 5 MG TABLET PO SCH (09:21)
[2017-05-06] MEDS: METOPROLOL SUCCINATE 50 MG TAB.ER.24H PO SCH (09:21)
[2017-05-06] MEDS: FINASTERIDE 5 MG TABLET PO SCH (09:21)
[2017-05-06] MEDS: HYDROCHLOROTHIAZIDE 25 MG TABLET PO SCH (09:21)
[2017-05-06] MEDS: TOLTERODINE TARTRATE 2 MG CAP.ER.24H PO SCH (09:22)
[2017-05-06] MEDS: SENNOSIDES/DOCUSATE SODIUM 1 EACH TABLET PO SCH (09:22)
[2017-05-06] MEDS ORDERED: CALCIUM/VIT D 500MG/200IU TABLET ONE (09:23)
[2017-05-06] MEDS: ENOXAPARIN SODIUM 30 MG/0.3 ML DISP.SYRIN SQ SCH (14:51)
[2017-05-06] MEDS: CALCIUM CARB 600MG/VIT D-3 400 1 EACH TABLET PO SCH (16:58)
[2017-05-06] MEDS: TAMSULOSIN HCL 0.4 MG CAP.ER.24H PO SCH (17:44)
[2017-05-06] MEDS: ATORVASTATIN CALCIUM 80 MG TABLET PO SCH (20:41)
[2017-05-07] MEDS: HYDROcodone /APAP 5/325 1 EACH TABLET PO PRN ×4 (00:01→23:00)
--- NOTE | 2017-05-07 07:30 | Inpatient Progress Note ---
Subjective - Required Recertification Statement I anticipate X number of days because-include discharge plan: 7 days - Review of Systems Events since last encounter: Patient states that he has been doing well. Patient stated he is not having much pain associated with his left knee replacement. Patient denies any constipation problems. Patient stated appetite has been good. Objective - Exam Vitals and I&O: Vital Signs Temp 97.6 F 05/06/17 20:29 Pulse 70 05/06/17 21:00 Resp 18 05/06/17 21:00 BP 145/75 05/06/17 20:29 Pulse Ox 95 05/06/17 20:29 Intake & Output 05/06/17 05/06/17 05/07/17 11:59 23:59 11:59 Intake Total 120 1110 120 Balance 120 1110 120 Intake: Oral 120 1110 120 Other: Voiding Method Urinal Urinal # Voids 3 3 1 General: Alert, Oriented to Person, Oriented to Place, Cooperative Neck: Supple Lungs: Clear to auscultation, Normal air movement, Speaks full Sentences. No: Wheezes, Rales, Rhonchi Cardiovascular: Regular rate, Normal S1, Normal S2, No murmurs Extremities: Other (skin incision looks good) Skin: Normal, [place], Warm Psych/Mental Status: Mental status NL, Appropriate Affect - Results Results: Laboratory Results WBC 11.00 K/ul (4.00-12.00) 05/05/17 06:25 RBC 3.51 M/ul (3.90-5.20) L 05/05/17 06:25 Hgb 9.6 g/dL (12.0-18.0) L 05/05/17 06:25 Hct 30.9 % (37.0-53.0) L 05/05/17 06:25 MCV 88.1 fl (80.0-100.0) 05/05/17 06:25 MCH 27.2 pg (28.0-34.0) L 05/05/17 06:25 MCHC 30.9 g/dL (30.0-36.0) 05/05/17 06:25 RDW 14.8 % (11.3-14.3) H 05/05/17 06:25 Plt Count 225 K/mm3 (130-400) 05/05/17 06:25 Neut % (Auto) 39.3 % (39.0-79.0) 05/05/17 06:25 Lymph % (Auto) 52.6 % (16.0-50.0) H 05/05/17 06:25 [place] % (Auto) 3.6 % (0.0-11.0) 05/05/17 06:25 Eos % (Auto) 1.7 % (0.0-6.8) 05/05/17 06:25 Baso % (Auto) 0.6 (0.0-1.5) 05/05/17 06:25 Neut # (Auto) 4.3 # k/uL (1.4-7.7) 05/05/17 06:25 Lymph # (Auto) 5.8 # k/uL (0.6-4.0) H 05/05/17 06:25 [place] # (Auto) 0.4 # k/uL (0.0-0.9) 05/05/17 06:25 Eos # (Auto) 0.2 # k/uL (0.0-0.6) 05/05/17 06:25 Baso # (Auto) 0.1 # k/uL (0.0-0.5) 05/05/17 06:25 Reactive Lymphs % 2.2 % (0.0-5.0) 05/05/17 06:25 Reactive Lymphs # 0.2 # k/uL (0.0-0.8) 05/05/17 06:25 Sodium 142 mmol/L (136-145) 05/05/17 06:25 Potassium 4.0 mmol/L (3.5-5.1) 05/05/17 06:25 Chloride 103 mmol/L (98-107) 05/05/17 06:25 Carbon Dioxide 30 mmol/L (22-30) 05/05/17 06:25 BUN 12 mg/dL (9-20) 05/05/17 06:25 Creatinine 0.70 mg/dL (0.66-1.25) 05/05/17 06:25 Estimated Creat Clear 341 05/05/17 06:25 Est GFR ( Amer) > 60 (60-) 05/05/17 06:25 Est GFR (Non-Af Amer) > 60 (60-) 05/05/17 06:25 Glucose 113 mg/dL (74-106) H 05/05/17 06:25 Calcium 8.9 mg/dL (8.4-10.2) 05/05/17 06:25 Total Bilirubin 1.0 mg/dL (0.2-1.3) 05/05/17 06:25 AST 17 U/L (15-46) 05/05/17 06:25 ALT 29 U/L (13-69) 05/05/17 06:25 Alkaline Phosphatase 41 U/L (38-126) 05/05/17 06:25 Total Protein 5.7 g/dL (6.3-8.2) L 05/05/17 06:25 Albumin 3.2 g/dL (3.5-5.0) L 05/05/17 06:25 Assessment/Plan - Assessment/Plan (1) Gait disturbance Status: Acute Current Visit: No Assessment: We will continue with physical and occupational therapy at this time. (2) S/P TKR (total knee replacement) Status: Acute Current Visit: Yes Assessment: stable (3) Essential hypertension Status: Chronic Current Visit: No Plan: Will continue with home medications. (4) BPH (benign prostatic hyperplasia) Status: Chronic Current Visit: No Plan: Will continue with home medications.
[2017-05-07] MEDS: ASPIRIN 325 MG TABLET PO SCH ×2 (09:21→19:48)
[2017-05-07] MEDS: FISH OIL 1,000 MG CAP PO SCH (09:21)
[2017-05-07] MEDS: HYDROCHLOROTHIAZIDE 25 MG TABLET PO SCH (09:22)
[2017-05-07] MEDS: FINASTERIDE 5 MG TABLET PO SCH (09:22)
[2017-05-07] MEDS: amLODIPine BESYLATE 5 MG TABLET PO SCH (09:22)
[2017-05-07] MEDS: METOPROLOL SUCCINATE 50 MG TAB.ER.24H PO SCH (09:23)
[2017-05-07] MEDS: SENNOSIDES/DOCUSATE SODIUM 1 EACH TABLET PO SCH (09:23)
[2017-05-07] MEDS: CALCIUM PO SCH (09:24)
[2017-05-07] MEDS: VIT D PO SCH (09:24)
[2017-05-07] MEDS: MULTIVITAMIN 1 EACH TABLET PO SCH (09:24)
[2017-05-07] MEDS: TOLTERODINE TARTRATE 2 MG CAP.ER.24H PO SCH (09:25)
[2017-05-07] MEDS: ENOXAPARIN SODIUM 30 MG/0.3 ML DISP.SYRIN SQ SCH (14:02)
[2017-05-07] MEDS: TAMSULOSIN HCL 0.4 MG CAP.ER.24H PO SCH (17:07)
[2017-05-07] MEDS: ATORVASTATIN CALCIUM 80 MG TABLET PO SCH (19:47)
[2017-05-07] MEDS: traMADol HCL 50 MG TABLET PO PRN (19:48)
[2017-05-08] MEDS ORDERED: CALCIUM/VIT D 500MG/200IU TABLET ONE (01:52)
[2017-05-08] MEDS: traMADol HCL 50 MG TABLET PO PRN ×2 (03:44→15:45)
[2017-05-08] MEDS: ASPIRIN 325 MG TABLET PO SCH ×2 (09:24→20:01)
[2017-05-08] MEDS: MULTIVITAMIN 1 EACH TABLET PO SCH (09:25)
[2017-05-08] MEDS: HYDROCHLOROTHIAZIDE 25 MG TABLET PO SCH (09:25)
[2017-05-08] MEDS: amLODIPine BESYLATE 5 MG TABLET PO SCH (09:25)
[2017-05-08] MEDS: FISH OIL 1,000 MG CAP PO SCH (09:25)
[2017-05-08] MEDS: METOPROLOL SUCCINATE 50 MG TAB.ER.24H PO SCH (09:25)
[2017-05-08] MEDS: TOLTERODINE TARTRATE 2 MG CAP.ER.24H PO SCH (09:25)
[2017-05-08] MEDS: SENNOSIDES/DOCUSATE SODIUM 1 EACH TABLET PO SCH (09:26)
[2017-05-08] MEDS: FINASTERIDE 5 MG TABLET PO SCH (09:26)
[2017-05-08] MEDS: VIT D PO SCH (09:29)
[2017-05-08] MEDS: CALCIUM PO SCH (09:29)
--- NOTE | 2017-05-08 13:27 | Inpatient Progress Note ---
Subjective - Required Recertification Statement I anticipate X number of days because-include discharge plan: 7 days - Review of Systems Events since last encounter: Patient continues to progress well at this time. Patient did not complain of much pain. Patient stated he feels like he is making progress with his physical and occupational therapy. Hypertension has remain stable. Objective - Exam Vitals and I&O: Vital Signs Temp 99.3 F 05/07/17 20:48 Pulse 70 05/07/17 21:00 Resp 20 05/07/17 21:00 BP 146/74 05/07/17 20:48 Pulse Ox 97 05/07/17 20:48 Intake & Output 05/07/17 05/08/17 05/08/17 23:59 11:59 23:59 Intake Total 720 340 Balance 720 340 Intake: Oral 720 340 Other: Voiding Method Urinal # Voids 1 2 General: Alert, Oriented to Person, Oriented to Place, Oriented to Time, Cooperative Neck: Supple Lungs: Clear to auscultation, Normal air movement, Speaks full Sentences. No: Wheezes, Rales, Rhonchi Cardiovascular: Regular rate, Normal S1, Normal S2, No murmurs Abdomen: Normal bowel sounds, Soft, No tenderness Psych/Mental Status: Mental status NL - Results Results: Laboratory Results WBC 11.00 K/ul (4.00-12.00) 05/05/17 06:25 RBC 3.51 M/ul (3.90-5.20) L 05/05/17 06:25 Hgb 9.6 g/dL (12.0-18.0) L 05/05/17 06:25 Hct 30.9 % (37.0-53.0) L 05/05/17 06:25 MCV 88.1 fl (80.0-100.0) 05/05/17 06:25 MCH 27.2 pg (28.0-34.0) L 05/05/17 06:25 MCHC 30.9 g/dL (30.0-36.0) 05/05/17 06:25 RDW 14.8 % (11.3-14.3) H 05/05/17 06:25 Plt Count 225 K/mm3 (130-400) 05/05/17 06:25 Neut % (Auto) 39.3 % (39.0-79.0) 05/05/17 06:25 Lymph % (Auto) 52.6 % (16.0-50.0) H 05/05/17 06:25 [place] % (Auto) 3.6 % (0.0-11.0) 05/05/17 06:25 Eos % (Auto) 1.7 % (0.0-6.8) 05/05/17 06:25 Baso % (Auto) 0.6 (0.0-1.5) 05/05/17 06:25 Neut # (Auto) 4.3 # k/uL (1.4-7.7) 05/05/17 06:25 Lymph # (Auto) 5.8 # k/uL (0.6-4.0) H 05/05/17 06:25 [place] # (Auto) 0.4 # k/uL (0.0-0.9) 05/05/17 06:25 Eos # (Auto) 0.2 # k/uL (0.0-0.6) 05/05/17 06:25 Baso # (Auto) 0.1 # k/uL (0.0-0.5) 05/05/17 06:25 Reactive Lymphs % 2.2 % (0.0-5.0) 05/05/17 06:25 Reactive Lymphs # 0.2 # k/uL (0.0-0.8) 05/05/17 06:25 Sodium 142 mmol/L (136-145) 05/05/17 06:25 Potassium 4.0 mmol/L (3.5-5.1) 05/05/17 06:25 Chloride 103 mmol/L (98-107) 05/05/17 06:25 Carbon Dioxide 30 mmol/L (22-30) 05/05/17 06:25 BUN 12 mg/dL (9-20) 05/05/17 06:25 Creatinine 0.70 mg/dL (0.66-1.25) 05/05/17 06:25 Estimated Creat Clear 341 05/05/17 06:25 Est GFR ( Amer) > 60 (60-) 05/05/17 06:25 Est GFR (Non-Af Amer) > 60 (60-) 05/05/17 06:25 Glucose 113 mg/dL (74-106) H 05/05/17 06:25 Calcium 8.9 mg/dL (8.4-10.2) 05/05/17 06:25 Total Bilirubin 1.0 mg/dL (0.2-1.3) 05/05/17 06:25 AST 17 U/L (15-46) 05/05/17 06:25 ALT 29 U/L (13-69) 05/05/17 06:25 Alkaline Phosphatase 41 U/L (38-126) 05/05/17 06:25 Total Protein 5.7 g/dL (6.3-8.2) L 05/05/17 06:25 Albumin 3.2 g/dL (3.5-5.0) L 05/05/17 06:25 Assessment/Plan - Assessment/Plan (1) Gait disturbance Status: Acute Assessment: Improving (2) S/P TKR (total knee replacement) Status: Acute Assessment: Stable (3) Essential hypertension Status: Chronic Assessment: Stable
[2017-05-08] MEDS: ENOXAPARIN SODIUM 30 MG/0.3 ML DISP.SYRIN SQ SCH (15:01)
[2017-05-08] MEDS: TAMSULOSIN HCL 0.4 MG CAP.ER.24H PO SCH (17:11)
[2017-05-08] MEDS: HYDROcodone /APAP 5/325 1 EACH TABLET PO PRN (18:12)
[2017-05-08] MEDS: ATORVASTATIN CALCIUM 80 MG TABLET PO SCH (20:01)
[2017-05-09] MEDS: HYDROcodone /APAP 5/325 1 EACH TABLET PO PRN ×3 (03:37→18:54)
[2017-05-09] MEDS ORDERED: CALCIUM/VIT D 500MG/200IU TABLET ONE (05:21)
[2017-05-09] MEDS: HYDROCHLOROTHIAZIDE 25 MG TABLET PO SCH (09:28)
[2017-05-09] MEDS: FISH OIL 1,000 MG CAP PO SCH (09:28)
[2017-05-09] MEDS: MULTIVITAMIN 1 EACH TABLET PO SCH (09:29)
[2017-05-09] MEDS: ASPIRIN 325 MG TABLET PO SCH ×2 (09:29→20:27)
[2017-05-09] MEDS: FINASTERIDE 5 MG TABLET PO SCH (09:29)
[2017-05-09] MEDS: TOLTERODINE TARTRATE 2 MG CAP.ER.24H PO SCH (09:29)
[2017-05-09] MEDS: VIT D PO SCH (09:30)
[2017-05-09] MEDS: SENNOSIDES/DOCUSATE SODIUM 1 EACH TABLET PO SCH (09:30)
[2017-05-09] MEDS: CALCIUM PO SCH (09:30)
[2017-05-09] MEDS: METOPROLOL SUCCINATE 50 MG TAB.ER.24H PO SCH (09:30)
[2017-05-09] MEDS: amLODIPine BESYLATE 5 MG TABLET PO SCH (09:30)
[2017-05-09] MEDS: ENOXAPARIN SODIUM 30 MG/0.3 ML DISP.SYRIN SQ SCH (14:30)
[2017-05-09] MEDS: TAMSULOSIN HCL 0.4 MG CAP.ER.24H PO SCH (17:28)
[2017-05-09] MEDS: ATORVASTATIN CALCIUM 80 MG TABLET PO SCH (20:28)
[2017-05-10] MEDS: HYDROcodone /APAP 5/325 1 EACH TABLET PO PRN ×2 (00:55→22:20)
[2017-05-10] MEDS: traMADol HCL 50 MG TABLET PO PRN (08:22)
[2017-05-10] MEDS: ASPIRIN 325 MG TABLET PO SCH ×2 (08:23→19:51)
[2017-05-10] MEDS: HYDROCHLOROTHIAZIDE 25 MG TABLET PO SCH (08:23)
[2017-05-10] MEDS: TOLTERODINE TARTRATE 2 MG CAP.ER.24H PO SCH (08:23)
[2017-05-10] MEDS: FISH OIL 1,000 MG CAP PO SCH (08:23)
[2017-05-10] MEDS: SENNOSIDES/DOCUSATE SODIUM 1 EACH TABLET PO SCH (08:24)
[2017-05-10] MEDS: FINASTERIDE 5 MG TABLET PO SCH (08:24)
[2017-05-10] MEDS: METOPROLOL SUCCINATE 50 MG TAB.ER.24H PO SCH (08:24)
[2017-05-10] MEDS: MULTIVITAMIN 1 EACH TABLET PO SCH (08:24)
[2017-05-10] MEDS: amLODIPine BESYLATE 5 MG TABLET PO SCH (08:24)
[2017-05-10] MEDS ORDERED: CALCIUM/VIT D 500MG/200IU TABLET ONE (10:23)
[2017-05-10] MEDS: CALCIUM PO SCH (10:24)
[2017-05-10] MEDS: VIT D PO SCH (10:24)
[2017-05-10] MEDS: ENOXAPARIN SODIUM 30 MG/0.3 ML DISP.SYRIN SQ SCH (15:48)
[2017-05-10] MEDS: TAMSULOSIN HCL 0.4 MG CAP.ER.24H PO SCH (18:00)
[2017-05-10] MEDS: ATORVASTATIN CALCIUM 80 MG TABLET PO SCH (19:51)
[2017-05-11] MEDS ORDERED: CALCIUM/VIT D 500MG/200IU TABLET ONE (02:38)
[2017-05-11] MEDS: HYDROcodone /APAP 5/325 1 EACH TABLET PO PRN (05:43)
[2017-05-11] MEDS: ASPIRIN 325 MG TABLET PO SCH ×2 (09:12→19:58)
[2017-05-11] MEDS: FISH OIL 1,000 MG CAP PO SCH (09:13)
[2017-05-11] MEDS: FINASTERIDE 5 MG TABLET PO SCH (09:13)
[2017-05-11] MEDS: CALCIUM PO SCH (09:13)
[2017-05-11] MEDS: HYDROCHLOROTHIAZIDE 25 MG TABLET PO SCH (09:13)
[2017-05-11] MEDS: VIT D PO SCH (09:13)
[2017-05-11] MEDS: TOLTERODINE TARTRATE 2 MG CAP.ER.24H PO SCH (09:13)
[2017-05-11] MEDS: amLODIPine BESYLATE 5 MG TABLET PO SCH (09:13)
[2017-05-11] MEDS: MULTIVITAMIN 1 EACH TABLET PO SCH (09:14)
[2017-05-11] MEDS: SENNOSIDES/DOCUSATE SODIUM 1 EACH TABLET PO SCH (09:14)
[2017-05-11] MEDS: METOPROLOL SUCCINATE 50 MG TAB.ER.24H PO SCH (09:14)
[2017-05-11] MEDS: ENOXAPARIN SODIUM 30 MG/0.3 ML DISP.SYRIN SQ SCH (16:03)
[2017-05-11] MEDS: TAMSULOSIN HCL 0.4 MG CAP.ER.24H PO SCH (17:35)
[2017-05-11] MEDS: traMADol HCL 50 MG TABLET PO PRN ×2 (18:24→21:50)
[2017-05-11] MEDS: ATORVASTATIN CALCIUM 80 MG TABLET PO SCH (19:58)
[2017-05-12] MEDS ORDERED: CALCIUM/VIT D 500MG/200IU TABLET ONE (01:52)
[2017-05-12] MEDS: HYDROcodone /APAP 5/325 1 EACH TABLET PO PRN ×2 (03:29→20:10)
[2017-05-12] MEDS: METOPROLOL SUCCINATE 50 MG TAB.ER.24H PO SCH (09:13)
[2017-05-12] MEDS: FISH OIL 1,000 MG CAP PO SCH (09:13)
[2017-05-12] MEDS: ASPIRIN 325 MG TABLET PO SCH ×2 (09:13→20:10)
[2017-05-12] MEDS: SENNOSIDES/DOCUSATE SODIUM 1 EACH TABLET PO SCH (09:13)
[2017-05-12] MEDS: FINASTERIDE 5 MG TABLET PO SCH (09:13)
[2017-05-12] MEDS: HYDROCHLOROTHIAZIDE 25 MG TABLET PO SCH (09:14)
[2017-05-12] MEDS: amLODIPine BESYLATE 5 MG TABLET PO SCH (09:14)
[2017-05-12] MEDS: MULTIVITAMIN 1 EACH TABLET PO SCH (09:15)
[2017-05-12] MEDS: TOLTERODINE TARTRATE 2 MG CAP.ER.24H PO SCH (09:15)
[2017-05-12] MEDS: CALCIUM PO SCH (09:15)
[2017-05-12] MEDS: VIT D PO SCH (09:15)
[2017-05-12] MEDS: ENOXAPARIN SODIUM 30 MG/0.3 ML DISP.SYRIN SQ SCH (14:55)
[2017-05-12] MEDS: TAMSULOSIN HCL 0.4 MG CAP.ER.24H PO SCH (17:31)
[2017-05-12] MEDS: ATORVASTATIN CALCIUM 80 MG TABLET PO SCH (20:18)
[2017-05-13] MEDS ORDERED: CALCIUM/VIT D 500MG/200IU TABLET ONE (05:35)
[2017-05-13] MEDS: VIT D PO SCH (09:23)
[2017-05-13] MEDS: CALCIUM PO SCH (09:23)
[2017-05-13] MEDS: ASPIRIN 325 MG TABLET PO SCH ×2 (09:23→20:03)
[2017-05-13] MEDS: TOLTERODINE TARTRATE 2 MG CAP.ER.24H PO SCH (09:24)
[2017-05-13] MEDS: FISH OIL 1,000 MG CAP PO SCH (09:24)
[2017-05-13] MEDS: HYDROCHLOROTHIAZIDE 25 MG TABLET PO SCH (09:25)
[2017-05-13] MEDS: amLODIPine BESYLATE 5 MG TABLET PO SCH (09:25)
[2017-05-13] MEDS: SENNOSIDES/DOCUSATE SODIUM 1 EACH TABLET PO SCH (09:26)
[2017-05-13] MEDS: METOPROLOL SUCCINATE 50 MG TAB.ER.24H PO SCH (09:26)
[2017-05-13] MEDS: FINASTERIDE 5 MG TABLET PO SCH (09:27)
[2017-05-13] MEDS: MULTIVITAMIN 1 EACH TABLET PO SCH (09:38)
--- NOTE | 2017-05-13 10:03 | Inpatient Progress Note ---
Subjective - Required Recertification Statement I anticipate X number of days because-include discharge plan: 2 - Review of Systems Events since last encounter: Rufino is up making progress with therapy, in which he is eagerly participating. He is using a walker and feels like he is getting stronger. The plan is for him to go home on with [facility]. He says that his pain is well controlled. He is using a walker. He will be on aspirin 325 mg po BID for DVT prophylaxis on discharge. General: Denies: Chills, Night Sweats HEENT: Denies: Head Aches Pulmonary: Denies: Dyspnea, Cough Cardiovascular: Denies: Chest Pain Gastrointestinal: Denies: Nausea, Vomiting Genitourinary: Denies: Dysuria Musculoskeletal: Denies: Neck Pain Neurological: Denies: Weakness, Numbness, Change in Speech, Confusion Objective - Exam Vitals and I&O: Vital Signs Temp 97.6 F 05/13/17 08:25 Pulse 92 H 05/13/17 08:27 Resp 16 05/13/17 08:27 BP 132/78 05/13/17 08:25 Pulse Ox 96 05/13/17 08:25 Intake & Output 05/12/17 05/12/17 05/13/17 11:59 23:59 11:59 Intake Total 1700 1180 540 Output Total 650 Balance 1700 1180 -110 Weight 105.687 kg Intake: Oral 1700 1180 540 Output: Urine 650 Other: Voiding Method Toilet Toilet Toilet # Voids 1 3 General: Alert, Oriented to Person, Oriented to Place HEENT: Atraumatic, PERRLA Neck: Supple Lungs: Clear to auscultation. No: Respiratory Distress Cardiovascular: Regular rate Abdomen: Normal bowel sounds, Soft, No tenderness Extremities: No clubbing, Other (left knee is well healed. No evidence of infection) - Results Results: Laboratory Results WBC 11.00 K/ul (4.00-12.00) 05/05/17 06:25 RBC 3.51 M/ul (3.90-5.20) L 05/05/17 06:25 Hgb 9.6 g/dL (12.0-18.0) L 05/05/17 06:25 Hct 30.9 % (37.0-53.0) L 05/05/17 06:25 MCV 88.1 fl (80.0-100.0) 05/05/17 06:25 MCH 27.2 pg (28.0-34.0) L 05/05/17 06:25 MCHC 30.9 g/dL (30.0-36.0) 05/05/17 06:25 RDW 14.8 % (11.3-14.3) H 05/05/17 06:25 Plt Count 225 K/mm3 (130-400) 05/05/17 06:25 Neut % (Auto) 39.3 % (39.0-79.0) 05/05/17 06:25 Lymph % (Auto) 52.6 % (16.0-50.0) H 05/05/17 06:25 [place] % (Auto) 3.6 % (0.0-11.0) 05/05/17 06:25 Eos % (Auto) 1.7 % (0.0-6.8) 05/05/17 06:25 Baso % (Auto) 0.6 (0.0-1.5) 05/05/17 06:25 Neut # (Auto) 4.3 # k/uL (1.4-7.7) 05/05/17 06:25 Lymph # (Auto) 5.8 # k/uL (0.6-4.0) H 05/05/17 06:25 [place] # (Auto) 0.4 # k/uL (0.0-0.9) 05/05/17 06:25 Eos # (Auto) 0.2 # k/uL (0.0-0.6) 05/05/17 06:25 Baso # (Auto) 0.1 # k/uL (0.0-0.5) 05/05/17 06:25 Reactive Lymphs % 2.2 % (0.0-5.0) 05/05/17 06:25 Reactive Lymphs # 0.2 # k/uL (0.0-0.8) 05/05/17 06:25 Sodium 142 mmol/L (136-145) 05/05/17 06:25 Potassium 4.0 mmol/L (3.5-5.1) 05/05/17 06:25 Chloride 103 mmol/L (98-107) 05/05/17 06:25 Carbon Dioxide 30 mmol/L (22-30) 05/05/17 06:25 BUN 12 mg/dL (9-20) 05/05/17 06:25 Creatinine 0.70 mg/dL (0.66-1.25) 05/05/17 06:25 Estimated Creat Clear 341 05/05/17 06:25 Est GFR ( Amer) > 60 (60-) 05/05/17 06:25 Est GFR (Non-Af Amer) > 60 (60-) 05/05/17 06:25 Glucose 113 mg/dL (74-106) H 05/05/17 06:25 Calcium 8.9 mg/dL (8.4-10.2) 05/05/17 06:25 Total Bilirubin 1.0 mg/dL (0.2-1.3) 05/05/17 06:25 AST 17 U/L (15-46) 05/05/17 06:25 ALT 29 U/L (13-69) 05/05/17 06:25 Alkaline Phosphatase 41 U/L (38-126) 05/05/17 06:25 Total Protein 5.7 g/dL (6.3-8.2) L 05/05/17 06:25 Albumin 3.2 g/dL (3.5-5.0) L 05/05/17 06:25 Assessment/Plan - Assessment/Plan (1) S/P TKR (total knee replacement) Status: Acute Current Visit: Yes Assessment: Making good progress. Using a walker, participating in therapy. (2) Gait disturbance Status: Acute Current Visit: No Assessment: Continue PT (3) Essential hypertension Status: Chronic Current Visit: No Assessment: Well controlled (4) Hyperlipemia Status: Chronic Current Visit: No Qualifiers: Hyperlipidemia type: pure hypercholesterolemia Qualified Code(s): E78.00 - Pure hypercholesterolemia, unspecified; E78.0 - Pure hypercholesterolemia Assessment: Continue atorvastatin
[2017-05-13 10:30] LABS: MEAN CORPUSCULAR HEMOGLOBIN 27.7 pg (28.0-34.0); MEAN CORPUSCULAR VOLUME 88.7 fl (80.0-100.0)
[2017-05-13 10:47] LABS: eGFR (African) > 60; eGFR (Non-African) > 60
[2017-05-13] MEDS: ENOXAPARIN SODIUM 30 MG/0.3 ML DISP.SYRIN SQ SCH (15:06)
[2017-05-13] MEDS: TAMSULOSIN HCL 0.4 MG CAP.ER.24H PO SCH (18:08)
[2017-05-13] MEDS: ATORVASTATIN CALCIUM 80 MG TABLET PO SCH (20:02)
[2017-05-13] MEDS: HYDROcodone /APAP 5/325 1 EACH TABLET PO PRN (20:03)
[2017-05-14] MEDS ORDERED: CALCIUM/VIT D 500MG/200IU TABLET ONE (00:41)
[2017-05-14] MEDS: HYDROcodone /APAP 5/325 1 EACH TABLET PO PRN ×2 (01:07→20:44)
[2017-05-14] MEDS: HYDROCHLOROTHIAZIDE 25 MG TABLET PO SCH (10:50)
[2017-05-14] MEDS: FISH OIL 1,000 MG CAP PO SCH (10:50)
[2017-05-14] MEDS: MULTIVITAMIN 1 EACH TABLET PO SCH (10:50)
[2017-05-14] MEDS: amLODIPine BESYLATE 5 MG TABLET PO SCH (10:50)
[2017-05-14] MEDS: FINASTERIDE 5 MG TABLET PO SCH (10:52)
[2017-05-14] MEDS: TOLTERODINE TARTRATE 2 MG CAP.ER.24H PO SCH (10:52)
[2017-05-14] MEDS: METOPROLOL SUCCINATE 50 MG TAB.ER.24H PO SCH (10:53)
[2017-05-14] MEDS: VIT D PO SCH (10:54)
[2017-05-14] MEDS: SENNOSIDES/DOCUSATE SODIUM 1 EACH TABLET PO SCH (10:54)
[2017-05-14] MEDS: ASPIRIN 325 MG TABLET PO SCH ×2 (10:54→20:41)
[2017-05-14] MEDS: CALCIUM PO SCH (10:54)
[2017-05-14] MEDS: traMADol HCL 50 MG TABLET PO PRN (11:16)
[2017-05-14] MEDS: ENOXAPARIN SODIUM 30 MG/0.3 ML DISP.SYRIN SQ SCH (15:29)
[2017-05-14] MEDS: TAMSULOSIN HCL 0.4 MG CAP.ER.24H PO SCH (17:27)
[2017-05-14] MEDS: ATORVASTATIN CALCIUM 80 MG TABLET PO SCH (20:41)
[2017-05-15] MEDS ORDERED: CALCIUM/VIT D 500MG/200IU TABLET ONE (04:52)
[2017-05-15] MEDS: amLODIPine BESYLATE 5 MG TABLET PO SCH (08:33)
[2017-05-15] MEDS: ASPIRIN 325 MG TABLET PO SCH (08:34)
[2017-05-15] MEDS: CALCIUM PO SCH (08:34)
[2017-05-15] MEDS: VIT D PO SCH (08:34)
[2017-05-15] MEDS: FISH OIL 1,000 MG CAP PO SCH (08:35)
[2017-05-15] MEDS: HYDROCHLOROTHIAZIDE 25 MG TABLET PO SCH (08:35)
[2017-05-15] MEDS: TOLTERODINE TARTRATE 2 MG CAP.ER.24H PO SCH (08:35)
[2017-05-15] MEDS: MULTIVITAMIN 1 EACH TABLET PO SCH (08:36)
[2017-05-15] MEDS: FINASTERIDE 5 MG TABLET PO SCH (08:36)
[2017-05-15] MEDS: METOPROLOL SUCCINATE 50 MG TAB.ER.24H PO SCH (08:36)
[2017-05-15] MEDS: SENNOSIDES/DOCUSATE SODIUM 1 EACH TABLET PO SCH (08:36)
[2017-05-15] MEDS: ENOXAPARIN SODIUM 30 MG/0.3 ML DISP.SYRIN SQ SCH (14:46)
[2017-05-15 16:53] VITALS: BP 133/74
--- NOTE | 2017-05-16 13:52 | Discharge Summary ---
DATE OF ADMISSION: May 02, 2017 DATE OF DISCHARGE: May 15, 2017 DIAGNOSES ON THIS HOSPITALIZATION: 1. Status post left total knee replacement. 2. Mild mental retardation. 3. Hypertension. 4. Benign prostatic hypertrophy (BPH). SUMMARIZATION OF ADMISSION HISTORY AND PHYSICAL: This is a 71-year-old male who underwent a left total knee replacement 4 days prior to admission. He did not have any perioperative complications. His pain had actually been fairly well controlled and he was admitted to our facility for ongoing physical therapy. HOSPITAL COURSE: He was an eager participant in physical therapy and actually continues to do extremely well. He was deemed ready for discharge then on May 15, 2017, and will be discharged to home. [facility] will be his home health provider. Medications on discharge are as follows. MEDICATIONS ON DISCHARGE: 1. Amlodipine 5 mg daily. 2. Aspirin 325 mg p.o. b.i.d. 3. Atorvastatin 40 mg p.o. at bedtime. 4. Calcium with vitamin D 1 p.o. daily. 5. Finasteride 5 mg daily. 6. Hydrochlorothiazide 12.5 mg daily. 7. Hydrocodone with Tylenol 5/325 mg 1 p.o. every 4 hours p.r.n. pain. 8. Metoprolol succinate 50 mg daily. 9. Multivitamin daily. 10. NitroQuick 0.4 mg sublingually every 5 minutes p.r.n. chest pain. 11. Flomax 0.4 mg daily. 12. Tolterodine 2 mg daily. 13. Tramadol 50 mg every 6 hours as needed for pain. DISCHARGE INSTRUCTIONS: 1. He will be seen by Dr. Stewart in 2 weeks. 2. He will follow up with Orthopedics as scheduled. 3. DVT prophylaxis is done per the recommendation of Orthopedics at 325 mg of aspirin b.i.d. for 4 more weeks. [facility]
--- NOTE | 2017-06-16 07:20 | Discharge Summary ---
Discharge Summary - Discharge Sumary History of Present Illness: Patient is a 71-year-old white male who last fall underwent a right total knee replacement. Approximately four days [employer] patient underwent a total left knee replacement. Patient did not have any preoperative, operative, or postoperative complications. Patient is not had a problem since the procedure. Patient states he has been passing gas. Has had a BM. Patient stated that his pain is well controlled at this time. Patient was admitted to this institution for further rehab services. Patient other chronic medical problems and remain stable. Patient denies it is had any chest pain or chest pressure. Condition at Discharge: Stable Home Medications: Ambulatory Orders Medication Instructions Recorded Aspirin [Katarina] 325 mg PO BID 05/04/16 Atorvastatin Calcium 10 mg PO HS 05/04/16 Calcium Carbonate [Calcium] 600 mg PO D 05/04/16 Finasteride [Proscar] 5 mg PO DAILY 05/04/16 Hydrochlorothiazide [Hydrodiuril] 12.5 mg PO D 05/04/16 Hydrocodone/Acetaminophen 1 each PO Q4 PRN 05/04/16 [Hydrocodon-Acetaminophen 5-325] Metoprolol Succinate [Toprol XL] 50 mg PO DAILY 05/04/16 Multivits-Min/Iron/FA/Lutein 1 each PO D 05/04/16 [Centrum Silver Women Tablet] Nitroglycerin [Nitroquick] 0.4 mg SL Q5M PRN 05/04/16 Zullinger-3S/Dha/Epa/Fish Oil [Fish 1 each PO D 05/04/16 Oil 1,200 mg Softgel] Oxybutynin Chloride [Ditropan Xl] 10 mg PO D 05/04/16 Sennosides/Docusate Sodium [Senna 1 each PO DAILY 05/04/16 Plus Tablet] Tamsulosin HCl [Flomax] 0.4 mg PO [id number] 05/04/16 Tramadol HCl [Ultram] 50 mg PO Q6 PRN 05/04/16 amLODIPine BESYLATE [Norvasc] 5 mg PO 0900 05/04/16 Consultations this Visit: None Procedures this Visit: None Allergies/Adverse Reactions: Allergies Allergy/AdvReac Type Severity Reaction Status Date / Time morphine Allergy Verified 05/04/16 12:42 Discharge Summary: Patient was started on physical and occupational therapy. Patient did make significant improvement in his ability to ambulate and transfer. Patient was highly motivated to participate in therapy. Patient pain remained well- controlled during the postoperative period. Patient other chronic medical problems including essential hypertension remain stable on his home medications. Patient was discharged in stable condition to home health - Final Diagnosis (1) Gait disturbance Problems: Patient gait did improve with physical and occupational therapy. Patient will be continued on physical and occupational therapy through home health. (2) S/P TKR (total knee replacement) Problems: Stable without any postoperative complications. (3) Essential hypertension Problems: Stable at home medications. (4) BPH (benign prostatic hyperplasia) Problems: Stable at home medications.
== END 2017-05-15 16:45 | disposition home health service (06) | DRG 93 ==
LOC: SOUTH 12:00
PROVIDERS: ADMIT Family Medicine; ATTEND Family Medicine
DX: R26.89 Other abnormalities of gait and mobility (principal); Z96.652 Presence of left artificial knee joint; I10 Essential (primary) hypertension; N40.0 Benign prostatic hyperplasia without lower urinary tract symptoms
CPT/HCPCS: 36415; 80053; 85025; 85027; J1650; A9270; A9270-GY

== ENCOUNTER 2017-05-30 14:28 | Outpatient (CLI) | payer OTHER ==
[2017-05-14 20:16] VITALS: BP 140/69
== END 2017-05-30 14:30 ==
LOC: POD 14:28
PROVIDERS: ATTEND Podiatrist
DX: B35.1 Tinea unguium (principal); M79.674 Pain in right toe(s); M79.675 Pain in left toe(s)
CPT/HCPCS: 11721; G0463

== ENCOUNTER 2017-08-29 14:18 | Outpatient (CLI) | payer OTHER | END 2017-08-29 14:20 | LOC: POD 14:18 | PROVIDERS: ATTEND Podiatrist | DX: B35.1 Tinea unguium (principal); M79.674 Pain in right toe(s); M79.675 Pain in left toe(s) | CPT/HCPCS: 11721; G0463 ==

== ENCOUNTER 2017-11-14 14:05 | Outpatient (CLI) | payer OTHER | END 2017-11-14 14:06 | LOC: POD 14:05 | PROVIDERS: ATTEND Podiatrist | DX: B35.1 Tinea unguium (principal); M79.674 Pain in right toe(s); M79.675 Pain in left toe(s) | CPT/HCPCS: 11721; G0463 ==